=== PATIENT | female | born 1960 | race Caucasian/White ===

== ENCOUNTER 2020-02-24 13:02 | Emergency (ER) | payer MEDICAID ==
[~2020-02-24] VITALS: Ht 160 cm; Wt 79.4 kg
[2020-02-24] MEDS ORDERED: TETRACAINE HCL/PF 0.5% OPHTHALMIC DROPS 4 ML OP ONE (13:03)
[2020-02-24] MEDS ORDERED: BALANCED SALT IRRIG SOLN 15 ML IO ONE (13:03)
[2020-02-24 13:06] VITALS: BP_SYST 149
--- NOTE | 2020-02-24 13:11 | NUR ---
ambulated to bed 6
--- NOTE | 2020-02-24 13:13 | NUR ---
Patient to ER bed 7 to gown for evaluation. Side rails up. Assumed care.
--- NOTE | 2020-02-24 13:15 | NUR ---
Patient arrived via POV with family, AAOx4, and ambulatory with steady gait. Patient c/c of eye pain, redness, and swelling. Patient states she has ointment for her cold sore and an ointment for eye dryness and put the cold sore ointment in her eye. Patient notes pain primarily to right eye and increased watering.
--- NOTE | 2020-02-24 13:56 | NUR ---
Eye kit obtained and placed at bedside for Dr. Badillo.
--- NOTE | 2020-02-24 14:01 | NUR ---
ER at bedside examining patient.
[2020-02-24 14:15] VITALS: BP_SYST 143
--- NOTE | 2020-02-24 14:15 | NUR ---
Patient given written and verbal discharge instructions and verbalizes understanding. ER MD discussed with patient the results and treatment provided. Patient in stable condition. ID arm band removed. Rx of tobramycin drops, tylenol given. Patient educated on pain management and to follow up with PMD. Pain Scale 2/10. Opportunity for questions provided and answered. Medication side effect fact sheet provided.
== END 2020-02-24 14:15 | disposition home or self-care (01) ==
LOC: SED 13:02
DX: H10.211 Acute toxic conjunctivitis, right eye (principal); I10 Essential (primary) hypertension
CPT/HCPCS: 99283